=== PATIENT | male | born 1955 | race Caucasian/White ===

== ENCOUNTER 2024-08-03 10:00 | Inpatient (IN) | payer OTHER ==
[2024-08-03] VITALS (13 sets, daily range): BP systolic 121–164; BP diastolic 51–83
[~2024-08-03] VITALS: Ht 162.6 cm; Wt 68.0 kg
[2024-08-03] MEDS ORDERED: Morphine Sulfate 4 MG/1 ML Injection IV ONE (10:10)
[2024-08-03] MEDS ORDERED: LORazepam 2 MG/ML 1ML Injection IV ONE (10:10)
[2024-08-03] MEDS ORDERED: Lisinopril2.5 MG PO (10:12)
[2024-08-03] MEDS ORDERED: ZOCOR20 MG PO (10:12)
[2024-08-03 11:53] LABS: BASOPHILS ABSOLUTE AUTO 0.04 K/mm3 (0.00-0.23); BASOPHILS PERCENT AUTO 0 % (0-2); EOSINOPHILS PERCENT AUTO 0 % (0-6); Hematocrit 39.7 % (37.0-53.0); Hemoglobin 13.5 g/dL (13.5-17.5); IMMATURE GRAN ABSOLUTE AUTO 0.04 K/mm3 (0.00-0.10); IMMATURE GRAN PERCENT AUTO 0 % (0-1); LYMPHOCYTES ABSOLUTE AUTO 2.02 K/mm3 (0.84-5.20); LYMPHOCYTES PERCENT AUTO 13 % (21-46); MONOCYTES ABSOLUTE AUTO 0.92 K/mm3 (0.16-1.47); MONOCYTES PERCENT AUTO 6 % (4-13); Mean Corpuscular HGB 31.8 pg (26.0-34.0); Mean Corpuscular Volume 94 fL (80-100); Mean Platelet Volume 10.1 fL (9.1-12.4); NEUTROPHILS ABSOLUTE AUTO 12.41 K/mm3 (1.96-9.15); NEUTROPHILS PERCENT AUTO 80 % (41-73); Platelet Count 305 K/mm3 (150-400); RDW Coefficient Variation 12.6 % (11.7-14.2); RDW Standard Deviation 43.3 fL (35.1-46.3); Red Blood Cell Count 4.24 M/mm3 (4.30-5.90); White Blood Cell Count 15.43 K/mm3 (4.00-11.30)
[2024-08-03 12:20] LABS: Albumin, Blood 3.6 g/dL (3.4-5.0); Albumin/Globulin Ratio 1.1 (0.8-1.8); Bilirubin, Total 0.3 mg/dL (0.1-1.0); Bun/Creatinine Ratio 24.1 (12.0-20.0); Calcium, Blood 8.9 mg/dL (8.5-10.1); Creatinine, Blood 0.66 mg/dL (0.60-1.20); Globulin, Blood 3.2 g/dL (2.2-4.0); Potassium, Blood 3.8 mmol/L (3.5-5.5); Total Protein, Blood 6.8 g/dL (6.4-8.2)
[2024-08-03] MEDS ORDERED: Bupivacaine 0.5% HCl 5 MG/ML 30MLVIAL ONE (12:31)
[2024-08-03] MEDS ORDERED: CeFAZolin Sodium 2,000 MG in NS 100 ML IV SCH (12:35)
[2024-08-03] MEDS ORDERED: Lactated Ringer's 1,000 ML IV SCH ×2 (12:35→15:30)
[2024-08-03] MEDS ORDERED: CeFAZolin Sodium 2,000 MG VIAL ONE (12:40)
[2024-08-03] MEDS ORDERED: ACET500 (13:06)
[2024-08-03] MEDS ORDERED: IBU800 MG (13:06)
[2024-08-03] MEDS ORDERED: FentaNYL Citrate 50 MCG/ML 2 ML Injection ONE (13:08)
[2024-08-03] MEDS ORDERED: Rocuronium Bromide 10 MG/ML 5ML Injection IV ONE ×2 (13:09→15:04)
[2024-08-03] MEDS ORDERED: propofoL 50 ML IV ONE (13:12)
--- NOTE | 2024-08-03 13:13 | NUR ---
PT INTO [facility] FROM ER FOR ROBOTIC ASSIST. LAP INGUINIAL HERNIA REPAIR. PT HAD SOLID FOOD YESTER EVENING FOLLOWED BY EMESIS. DRANK COFFEE WITH CREAM AND SUGAR AT [address] ANGEL FROM ANESTHESIA AWARE. Pre-Op teaching done. Pt verbalizes understanding. History, Chart, Medications and Allergies reviewed before start of procedure. AT BS. QUESTIONS ANSWERED
[2024-08-03] MEDS ORDERED: Phenylephrine HCl 100 MCG/ML-NS 10MLSYR (1MG/10ML) ONE (13:34)
[2024-08-03] MEDS ORDERED: Indocyanine Green 25 MG Vial IV ONE ×3 (14:02→14:18)
[2024-08-03] MEDS ORDERED: Ketorolac Tromethamine 30mg Vial ONE (14:09)
[2024-08-03] MEDS ORDERED: Ondansetron HCl 2 MG / ML 2ML Vial ONE (14:09)
[2024-08-03] MEDS ORDERED: Sugammadex Sodium 200 MG/2ML SDV (100 MG/ML) ONE (14:09)
[2024-08-03] MEDS ORDERED: Dexamethasone Sod Phos 10 MG/ML 1ML VIAL ONE (14:09)
[2024-08-03] MEDS ORDERED: Labetalol HCL 5 MG/ML 4ML Injection (Single Dose) ONE (15:07)
[2024-08-03] MEDS ORDERED: FLU VACC TS2024-25(6MOS UP)/PF 45 MCG/0.5 ML SYRINGE IM SCH (15:25)
[2024-08-03] MEDS ORDERED: HYDROcodone 5-APAP 325 TAB PO PRN (15:30)
[2024-08-03] MEDS ORDERED: FentaNYL Citrate 50 MCG/ML 2 ML Injection IV PRN (15:30)
--- NOTE | 2024-08-03 18:16 | NUR ---
SUMMARY NO ACUTE CHANGES SINCE ARRIVING TO FLOOR FROM PACU. LAP SITES X3 CDI W/TISS ADHESIVE. PT TOLERATING CLEAR LIQUIDS. MEDICATED PER ORDERS FOR 3/10 PAIN W/1 TAB NORCO. PT PLACED ON TELE PER ORDERS. SINUS AMANDA. CALL LIGHT IN REACH.
[2024-08-03] MEDS ORDERED: Famotidine 20 MG Tab PO SCH (21:00)
[2024-08-04 03:26] VITALS: BP 116/51
--- NOTE | 2024-08-04 04:27 | NUR ---
SHIFT SUMMARY POD1 FOR REDUCTION OF INCARCERATED RIGHT INGUINAL HERNIA WITH SBO. BOWEL TONES PRESENT IN ALL QUADRANTS. PASSING GAS. VOIDING. TOLERATING CLEAR LIQUIDS. PAIN MANAGED UTILIZING NPIS AND PER EMAR. TELEMETRY MONITORING OVERNIGHT; SINUS RHYTHM HR 60BPM. X3 LAP SITES TO ABD WITH TISSUE ADHESIVE, EDGES WELL APPROXIMATED & C/D/I. AMBULATING, SBA FOR LINES. A&OX4, ABLE TO VOICE NEEDS. CALL LIGHT IN REACH. PT VOICED UNDERSTANDING, DENIES QUESTIONS/CONCERNS AT THIS TIME.
[2024-08-04 04:51] LABS: BASOPHILS ABSOLUTE AUTO 0.02 K/mm3 (0.00-0.23); BASOPHILS PERCENT AUTO 0 % (0-2); EOSINOPHILS PERCENT AUTO 0 % (0-6); Hematocrit 37.8 % (37.0-53.0); Hemoglobin 13.1 g/dL (13.5-17.5); IMMATURE GRAN ABSOLUTE AUTO 0.09 K/mm3 (0.00-0.10); IMMATURE GRAN PERCENT AUTO 1 % (0-1); LYMPHOCYTES ABSOLUTE AUTO 1.29 K/mm3 (0.84-5.20); LYMPHOCYTES PERCENT AUTO 7 % (21-46); MONOCYTES ABSOLUTE AUTO 0.86 K/mm3 (0.16-1.47); MONOCYTES PERCENT AUTO 5 % (4-13); Mean Corpuscular HGB Conc 34.7 g/dL (31.5-36.5); Mean Corpuscular Volume 92 fL (80-100); Mean Platelet Volume 10.5 fL (9.1-12.4); NEUTROPHILS ABSOLUTE AUTO 16.01 K/mm3 (1.96-9.15); NEUTROPHILS PERCENT AUTO 88 % (41-73); Platelet Count 325 K/mm3 (150-400); RDW Coefficient Variation 12.6 % (11.7-14.2); RDW Standard Deviation 43.4 fL (35.1-46.3); White Blood Cell Count 18.27 K/mm3 (4.00-11.30)
[2024-08-04 05:08] LABS: Bun/Creatinine Ratio 26.6 (12.0-20.0); Calcium, Blood 9.3 mg/dL (8.5-10.1); Creatinine, Blood 0.68 mg/dL (0.60-1.20); Potassium, Blood 4.4 mmol/L (3.5-5.5)
[2024-08-04 07:58] VITALS: BP 131/89
[2024-08-04] MEDS ORDERED: Enoxaparin 40 MG/0.4 ML SYR SC SCH (09:00)
[2024-08-04] MEDS ORDERED: Lisinopril 20 MG Tab PO SCH (09:00)
[2024-08-04] MEDS ORDERED: Norco 5-325 Ta1 EACH PO (10:03)
--- NOTE | 2024-08-04 13:55 | NUR ---
DISCHARGE: PACKET PRINTED AND PT EDUCATED. IV DC'D WNL , TIP INTACT BY STUDENT RN. PT LEFT UNIT AROUND 1255 ON FOOT
[2024-08-04] MEDS ORDERED: Atorvastatin 10 MG Tab PO SCH (21:00)
== END 2024-08-04 12:55 | disposition home or self-care (01) | DRG 352 ==
LOC: ER 10:00 → SURS 10:01 → ER 12:25 → SURS 15:24
PROVIDERS: Emergency Medicine; ADMIT Surgery
PROC: 8E0W4CZ Robotic Assisted Procedure of Trunk Region, Percutaneous Endoscopic Approach (ICD-10-PCS; 2024-08-03)
PROC: 0YU54JZ Supplement Right Inguinal Region with Synthetic Substitute, Percutaneous Endoscopic Approach (ICD-10-PCS; principal; 2024-08-03 12:30)
DX: K40.30 Unilateral inguinal hernia, with obstruction, without gangrene, not specified as recurrent (principal); K40.90 Unilateral inguinal hernia, without obstruction or gangrene, not specified as recurrent; I10 Essential (primary) hypertension; E78.5 Hyperlipidemia, unspecified; Z90.49 Acquired absence of other specified parts of digestive tract
CPT/HCPCS: 36415; 74177; 80048; 80053; 85025; 96374-59; 96375-59; 99285-25; A9270; C1781; J0690; J1100; J1650; J1885; J2060; J2270; J2371; J2405; J2704; J3010; J7120; Q9967